=== PATIENT | male | born 1955 | race Caucasian/White ===

== ENCOUNTER 2018-07-23 04:12 | Emergency (ER) | payer SELFPAY ==
[~2018-07-23] VITALS: Ht 170.2 cm; Wt 76.6 kg
[~2018-07-23 04:12] MED LIST: ALLO300T PO; ASPI325T80 PO; BENA20TA4 PO; FLUO40CA2 PO; GLIM4TAB2 PO; HYDR12.517 PO; INSU100C5 SQ-INSULIN; INSU100I28 SQ-INSULIN; INSU100I7 SQ-INSULIN; INSU100V13 SC; INSU100V8 SQ; LOVA40TA2 PO; OMEP20CA9 PO; SITA1TBM7 PO; SUMA25TA3 PO; VERA180C2 PO
--- NOTE | 2018-07-23 04:33 | NUR ---
PT STATES "BRET HAD THE FLUx3 WEEKS." STATES N/V. SUBJECTIVE FEVER. PT STATES DIFFUSE ABD PAIN. DENIES CP/SOB. VSS. CALL LIGHT WTIHIN REACH. AWAITING MD ASSESSMENT.
[2018-07-23] MEDS ORDERED: SODIUM CHLORIDE FLUSH 10ML SYR IVF ONE (05:00)
[2018-07-23] MEDS ORDERED: ONDANSETRON 2MG/ML, 2ML IVPush ONE (05:00)
[2018-07-23] MEDS ORDERED: FAMOTIDINE 20 MG/2 ML IVP ONE (05:00)
[2018-07-23] MEDS ORDERED: FAMOTIDINE 20 MG/2 ML ONE (05:02)
[2018-07-23] MEDS ORDERED: MORPHINE SULFATE 4 MG/ML, 1ML ONE ×2 (05:02→06:00)
[2018-07-23] MEDS ORDERED: ONDANSETRON 2MG/ML, 2ML ONE (05:02)
[2018-07-23] MEDS: MORPHINE SULFATE 4 MG/ML, 1ML IVPush PRN ×2 (05:14→06:09)
[2018-07-23 05:21] LABS: PH, VENOUS 7.494 pH (7.320-7.420)
[2018-07-23 05:33] LABS: BASOPHILS # (AUTO) 0.05 x10^3/uL (0-0.1); BASOPHILS % (AUTO) 0 % (0-1); EOSINOPHILS # (AUTO) 0.03 x10^3/uL (0-0.4); EOSINOPHILS % (AUTO) 0 % (1-7); LYMPHOCYTES # (AUTO) 1.33 x10^3/uL (1-3.4); LYMPHOCYTES % (AUTO) 9 % (22-44); MD NO; MEAN CORPUSCULAR HEMOGLOBIN 31.9 pg (27.5-34.5); MEAN CORPUSCULAR HGB CONC 33.9 g/dL (33.2-36.2); MEAN CORPUSCULAR VOLUME 94.1 fL (81-97); MEAN PLATELET VOLUME 9.7 fL (7.4-10.4); MONOCYTES # (AUTO) 0.83 x10^3/uL (0.2-0.8); MONOCYTES % (AUTO) 5 % (2-9); NEUTROPHILS # (AUTO) 13.03 x10^3/uL (1.8-6.8); NEUTROPHILS % (AUTO) 85 % (42-75); PLATELET COUNT 177 x10^3/uL (130-400); RED BLOOD COUNT 5.07 x10^6/uL (4.38-5.82); RED CELL DISTRIBUTION WIDTH 15.8 % (9.4-14.8)
[2018-07-23 05:44] LABS: ALANINE AMINOTRANSFERASE 53 U/L (12-78); ALBUMIN 3.8 g/dL (3.4-5.0); ANION GAP 13 mmol/L (5-15); CALCIUM 9.9 mg/dL (8.5-10.1); CHLORIDE 102 mmol/L (98-107); CREATININE 1.83 mg/dL (0.7-1.3)
[2018-07-23 05:47] LABS: ALKALINE PHOSPHATASE 128 U/L (45-117); BILIRUBIN,TOTAL 0.5 mg/dL (0.2-1.0); TOTAL PROTEIN 8.2 g/dL (6.4-8.2)
[2018-07-23 05:54] LABS: ACETONE, SERUM Small (20mg/dL) mg/dL (Negative)
[2018-07-23] MEDS ORDERED: METOCLOPRAMIDE 5 MG/ML, 2ML ONE (06:00)
[2018-07-23] MEDS ORDERED: METOCLOPRAMIDE 5 MG/ML, 2ML IVPush ONE (06:00)
--- NOTE | 2018-07-23 06:09 | NUR ---
PT STATES STILL IN PAIN. MD AWARE. SECOND MORHINE GIVEN PER MAR AND REGLAN GIVEN PER MAR.
--- NOTE | 2018-07-23 07:04 | NUR ---
PT REPORT TO CATHLEEN GUARDADO.
[2018-07-23] MEDS ORDERED: SODIUM CHLORIDE 0.9% 1,000ML IVBOLUS ONE (07:30)
[2018-07-23 07:42] VITALS: BP 113/72
--- NOTE | 2018-07-23 08:02 | NUR ---
pt comfortable in bed. urinal provided with instructions to provide ua.
[2018-07-23 08:25] LABS: MICROSCOPIC NOT IND
[2018-07-23 08:35] LABS: CULTURE INDICATED? NO
[2018-07-24] MEDS ORDERED: INSU100V13 SQ (15:48)
== END 2018-07-23 09:04 | disposition home or self-care (01) ==
LOC: ED 06:32
DX: R10.32 Left lower quadrant pain (principal); R10.31 Right lower quadrant pain; R19.7 Diarrhea, unspecified; R11.0 Nausea; K21.9 Gastro-esophageal reflux disease without esophagitis; I10 Essential (primary) hypertension; E78.5 Hyperlipidemia, unspecified; M10.9 Gout, unspecified; E11.9 Type 2 diabetes mellitus without complications
CPT/HCPCS: 36415; 74176; 80053; 81003; 82010; 82803; 82962; 83690; 85025; 96374; 96375; 96376; 99284; J2405; J2765; J3490; J7030

== ENCOUNTER 2018-07-24 13:00 | Inpatient (IN) | payer OTHER ==
[~2018-07-24] VITALS: Ht 170.2 cm; Wt 80.8 kg
[~2018-07-24 13:00] MED LIST changes: -BENA20TA4 PO; +BENA20TA54 PO
[2018-07-24] MEDS ORDERED: ONDANSETRON 2MG/ML, 2ML ONE (13:52)
[2018-07-24] MEDS ORDERED: MORPHINE SULFATE 4 MG/ML, 1ML ONE ×2 (13:52→14:31)
[2018-07-24] MEDS: MORPHINE SULFATE 4 MG/ML, 1ML IVPush PRN ×2 (13:54→14:37)
[2018-07-24] MEDS ORDERED: SODIUM CHLORIDE FLUSH 10ML SYR IVF ONE (14:00)
[2018-07-24] MEDS ORDERED: ONDANSETRON 2MG/ML, 2ML IVPush ONE (14:00)
[2018-07-24] MEDS ORDERED: SODIUM CHLORIDE 0.9% 1,000ML IVBOLUS ONE (14:00)
--- NOTE | 2018-07-24 14:00 | NUR ---
pt presents to ED with c/o small amt rectal bleeding that occured x 1 today. pt also notes abd cramping to all quadrants. piv started, pt medicated, bp and spo2 monitors in place. call light in reach. awaiting labs and dispo .
[2018-07-24 14:06] LABS: INTERNATIONAL NORMALIZED RATIO 1.08 (0.93-1.1); PROTHROMBIN TIME 11.4 Seconds (9.6-11.5)
[2018-07-24 14:09] LABS: ALANINE AMINOTRANSFERASE 49 U/L (12-78); ALBUMIN 3.6 g/dL (3.4-5.0); ANION GAP 13 mmol/L (5-15); CALCIUM 9.5 mg/dL (8.5-10.1); CHLORIDE 104 mmol/L (98-107); CREATININE 1.41 mg/dL (0.7-1.3)
[2018-07-24 14:11] LABS: ALKALINE PHOSPHATASE 119 U/L (45-117); BILIRUBIN,TOTAL 0.7 mg/dL (0.2-1.0); MEAN CORPUSCULAR HEMOGLOBIN 31.8 pg (27.5-34.5); MEAN CORPUSCULAR HGB CONC 33.6 g/dL (33.2-36.2); MEAN CORPUSCULAR VOLUME 94.6 fL (81-97); MEAN PLATELET VOLUME 9.6 fL (7.4-10.4); PLATELET COUNT 168 x10^3/uL (130-400); RED BLOOD COUNT 4.94 x10^6/uL (4.38-5.82); RED CELL DISTRIBUTION WIDTH 15.6 % (9.4-14.8); TOTAL PROTEIN 7.9 g/dL (6.4-8.2)
[2018-07-24 14:40] LABS: ACETONE, SERUM Trace (10mg/dL) mg/dL (Negative)
--- NOTE | 2018-07-24 14:40 | NUR ---
PT STATES PAIN LEVEL 8/10 AT THIS TIME IN ABD, PT A&O, RESPS EVEN AND UNLABORED. VSS. PT MEDICATED PER EMAR WITH SECOND DOSE MORPHINE. PT TO CT AT THIS TIME.
[2018-07-24 14:41] LABS: TROPONIN I < 0.015 ng/mL (0.000-0.045)
[2018-07-24 14:44] LABS: BASOPHILS # (AUTO) 0.05 x10^3/uL (0-0.1); BASOPHILS % (AUTO) 0 % (0-1); EOSINOPHILS # (AUTO) 0.05 x10^3/uL (0-0.4); EOSINOPHILS % (AUTO) 0 % (1-7); LYMPHOCYTES # (AUTO) 1.43 x10^3/uL (1-3.4); LYMPHOCYTES % (AUTO) 12 % (22-44); MD SCAN; MONOCYTES % (AUTO) 7 % (2-9); NEUTROPHILS # (AUTO) 9.28 x10^3/uL (1.8-6.8); NEUTROPHILS % (AUTO) 80 % (42-75)
[2018-07-24] MEDS ORDERED: OMNIPAQUE 350 MG/ML, 100ML BOTTLE ONE (15:17)
--- NOTE | 2018-07-24 15:26 | NUR ---
pt reports abd pain level initially decreased with second dose morphine but now increased again to level 8/10 to all quadrants. pt denies pain in any other location. EDMD Susanna notified pt requesting more pain medication.
[2018-07-24] MEDS ORDERED: HYDROmorphone 2 MG/ML, 1ML IVPush ONE (15:30)
[2018-07-24] MEDS ORDERED: HYDROmorphone 2 MG/ML, 1ML ONE (15:35)
[2018-07-24] MEDS ORDERED: INSU100V13 SQ (15:48)
[2018-07-24] MEDS ORDERED: CEFTRIAXONE PMX 1GM/50ML 50 ML ONE (15:52)
[2018-07-24] MEDS ORDERED: METRONIDAZOLE PMX 500MG/100ML 100 ML IV ONE (16:00)
[2018-07-24] MEDS ORDERED: CEFTRIAXONE PMX 1GM/50ML 50 ML IV ONE (16:00)
--- NOTE | 2018-07-24 16:24 | NUR ---
hospitalist at bedside to admit pt. report called to [facility]one[facility]. pt awaiting transport to room 371.
[2018-07-24] MEDS ORDERED: ONDANSETRON 2MG/ML, 2ML IVPush PRN (16:30)
[2018-07-24] MEDS ORDERED: hydrALAzine 20 MG/ML, 1ML IVPush PRN (16:30)
[2018-07-24] MEDS ORDERED: ONDANSETRON ODT 4 MG PO PRN (16:30)
[2018-07-24] MEDS ORDERED: HEPARIN 5,000 UNITS/ML, 1ML SQ SCH (16:30)
[2018-07-24] MEDS ORDERED: LABETALOL 5MG/ML, 20ML IVPush PRN (16:30)
[2018-07-24 16:58] LABS: CREATINE KINASE, TOTAL 71 U/L (39-308)
[2018-07-24 17:00] LABS: HEMOGLOBIN A1C 10.4 % (4.2-6.3)
[2018-07-24 17:09] VITALS: BP 142/93
[2018-07-24] MEDS: morphine SULFATE 10 MG/ML, 1ML IVPush PRN (17:25)
[2018-07-24] MEDS: SODIUM CHLORIDE 0.9% 1,000 ML IV SCH (17:26)
[2018-07-24] MEDS: OXYcodone/APAP 5/325MG TABLET PO PRN (18:22)
[2018-07-24] MEDS ORDERED: GOLYTELY 4,000ML ORAL.SOL PO ONE (20:00)
[2018-07-24 20:29] VITALS: BP 131/88
[2018-07-24] MEDS: INSULIN LISPRO 100 UNITS/ML, PEN SQ-INSULIN SCH (21:00)
[2018-07-24] MEDS: LOVASTATIN 40 MG TABLET PO SCH (22:14)
[2018-07-24] MEDS: VERAPAMIL ER 180MG TABLET.ER PO SCH (22:15)
[2018-07-25] MEDS: SODIUM CHLORIDE 0.9% 1,000 ML IV SCH ×2 (03:51→16:26)
[2018-07-25 03:53] VITALS: BP 113/69
[2018-07-25 03:55] LABS: CLOSTRIDIUM DIFFICILE ANTIGEN NEGATIVE; CLOSTRIDIUM DIFFICILE TOXIN NEGATIVE (Negative)
[2018-07-25 05:38] LABS: ALBUMIN 2.7 g/dL (3.4-5.0); ANION GAP 8 mmol/L (5-15); CALCIUM 8.5 mg/dL (8.5-10.1); CHLORIDE 109 mmol/L (98-107)
[2018-07-25 05:46] LABS: ALANINE AMINOTRANSFERASE 34 U/L (12-78); ALKALINE PHOSPHATASE 89 U/L (45-117); BILIRUBIN,TOTAL 0.6 mg/dL (0.2-1.0); CHOL/HDL RATIO 3.2; CHOLESTEROL, TOTAL 101 mg/dL (140-239); CREATININE 1.19 mg/dL (0.7-1.3); HDL CHOL % 32 % (26-37); HDL CHOLESTEROL (DIRECT) 32 mg/dL (40-60); LDL CHOLESTEROL,CALCULATED 44 mg/dL (54-169); LDL/HDL RATIO 1.4 (0.5-3.0); TRIGLYCERIDES 127 mg/dL (50-200); VLDL CHOLESTEROL 25 mg/dL (0-25)
[2018-07-25 05:53] LABS: BASOPHILS # (AUTO) 0.02 x10^3/uL (0-0.1); BASOPHILS % (AUTO) 0 % (0-1); EOSINOPHILS # (AUTO) 0.06 x10^3/uL (0-0.4); EOSINOPHILS % (AUTO) 1 % (1-7); LYMPHOCYTES # (AUTO) 1.77 x10^3/uL (1-3.4); LYMPHOCYTES % (AUTO) 19 % (22-44); MD NO; MEAN CORPUSCULAR HEMOGLOBIN 31.3 pg (27.5-34.5); MEAN CORPUSCULAR HGB CONC 32.7 g/dL (33.2-36.2); MEAN CORPUSCULAR VOLUME 95.7 fL (81-97); MEAN PLATELET VOLUME 9.2 fL (7.4-10.4); MONOCYTES % (AUTO) 9 % (2-9); NEUTROPHILS # (AUTO) 6.49 x10^3/uL (1.8-6.8); NEUTROPHILS % (AUTO) 71 % (42-75); PLATELET COUNT 136 x10^3/uL (130-400); RED BLOOD COUNT 4.04 x10^6/uL (4.38-5.82); RED CELL DISTRIBUTION WIDTH 16.3 % (9.4-14.8)
[2018-07-25] MEDS ORDERED: MAGNESIUM SULFATE PMX 2GM/50ML 50 ML IV ONE (07:00)
[2018-07-25 07:05] VITALS: BP 123/66
[2018-07-25] MEDS ORDERED: SUMATRIPTAN 50 MG TABLET ONE (07:46)
[2018-07-25] MEDS: SUMATRIPTAN 25 MG TABLET PO PRN (07:49)
[2018-07-25] MEDS: INSULIN LISPRO 100 UNITS/ML, PEN SQ-INSULIN SCH ×4 (07:57→19:48)
[2018-07-25 08:14] LABS: CRYPTOSPORIDIUM ANTIGEN Negative (Negative)
[2018-07-25] MEDS: morphine SULFATE 10 MG/ML, 1ML IVPush PRN ×3 (09:27→19:48)
[2018-07-25] MEDS ORDERED: MIDAZOLAM 1 MG/ML, 5ML ONE (09:45)
[2018-07-25] MEDS ORDERED: FENTANYL PF 100 MCG/2ML ONE (09:45)
[2018-07-25] MEDS: FLUOXETINE HCL 20 MG CAPSULE PO SCH (12:05)
[2018-07-25] MEDS: OXYcodone/APAP 5/325MG TABLET PO PRN ×3 (12:05→23:15)
[2018-07-25] MEDS: VERAPAMIL ER 180MG TABLET.ER PO SCH ×2 (12:05→19:49)
[2018-07-25] MEDS: OMEPRAZOLE 20 MG CAPSULE.DR PO SCH (12:06)
[2018-07-25 13:00] VITALS: BP 108/70
[2018-07-25 18:59] VITALS: BP 110/65
[2018-07-25] MEDS: LOVASTATIN 40 MG TABLET PO SCH (19:48)
[2018-07-26] MEDS: SODIUM CHLORIDE 0.9% 1,000 ML IV SCH (00:50)
[2018-07-26] MEDS: SUMATRIPTAN 25 MG TABLET PO PRN ×4 (00:56→16:47)
[2018-07-26 01:33] VITALS: BP 117/69
[2018-07-26] MEDS ORDERED: SUMATRIPTAN 50 MG TABLET ONE (03:39)
[2018-07-26 05:56] LABS: BASOPHILS # (AUTO) 0.02 x10^3/uL (0-0.1); BASOPHILS % (AUTO) 0 % (0-1); EOSINOPHILS % (AUTO) 1 % (1-7); LYMPHOCYTES % (AUTO) 26 % (22-44); MD NO; MEAN CORPUSCULAR HEMOGLOBIN 31.1 pg (27.5-34.5); MEAN CORPUSCULAR HGB CONC 32.6 g/dL (33.2-36.2); MEAN CORPUSCULAR VOLUME 95.3 fL (81-97); MEAN PLATELET VOLUME 9.6 fL (7.4-10.4); MONOCYTES # (AUTO) 0.59 x10^3/uL (0.2-0.8); MONOCYTES % (AUTO) 8 % (2-9); NEUTROPHILS # (AUTO) 4.94 x10^3/uL (1.8-6.8); NEUTROPHILS % (AUTO) 65 % (42-75); PLATELET COUNT 133 x10^3/uL (130-400); RED BLOOD COUNT 4.07 x10^6/uL (4.38-5.82); RED CELL DISTRIBUTION WIDTH 15.8 % (9.4-14.8)
[2018-07-26 06:14] LABS: ANION GAP 12 mmol/L (5-15); CALCIUM 7.8 mg/dL (8.5-10.1); CHLORIDE 110 mmol/L (98-107)
[2018-07-26 06:17] LABS: CREATININE 0.94 mg/dL (0.7-1.3)
[2018-07-26 06:52] VITALS: BP 150/84
[2018-07-26] MEDS ORDERED: MAGNESIUM SULFATE PMX 4GM/100M 100 ML IVPB ONE (07:00)
[2018-07-26] MEDS: FLUOXETINE HCL 20 MG CAPSULE PO SCH (07:52)
[2018-07-26] MEDS: OXYcodone/APAP 5/325MG TABLET PO PRN (07:52)
[2018-07-26] MEDS: OMEPRAZOLE 20 MG CAPSULE.DR PO SCH (07:52)
[2018-07-26] MEDS: VERAPAMIL ER 180MG TABLET.ER PO SCH (07:52)
[2018-07-26] MEDS: INSULIN LISPRO 100 UNITS/ML, PEN SQ-INSULIN SCH ×2 (07:58→12:16)
[2018-07-26] MEDS ORDERED: MAALOX/HYOSCYAMINE/LIDOCAINE 45 ML BTL PO ONE (08:30)
[2018-07-26] MEDS ORDERED: ACET-76 PO (12:37)
[2018-07-26 15:33] VITALS: BP 123/73
== END 2018-07-26 16:51 | disposition home or self-care (01) | DRG 393 ==
LOC: ED 14:12 → EDIP 15:38 → 3NE 16:38
PROVIDERS: ADMIT Hospitalist; ATTEND Hospitalist
PROC: 0DBP8ZZ Excision of Rectum, Via Natural or Artificial Opening Endoscopic (ICD-10-PCS; 2018-07-25)
PROC: 0DBK8ZZ Excision of Ascending Colon, Via Natural or Artificial Opening Endoscopic (ICD-10-PCS; principal; 2018-07-25 10:30)
DX: K55.9 Vascular disorder of intestine, unspecified (principal); N17.0 Acute kidney failure with tubular necrosis; E87.2 Acidosis; E11.65 Type 2 diabetes mellitus with hyperglycemia; E78.5 Hyperlipidemia, unspecified; Z66 Do not resuscitate; K21.9 Gastro-esophageal reflux disease without esophagitis; I10 Essential (primary) hypertension; Z80.1 Family history of malignant neoplasm of trachea, bronchus and lung; Z79.4 Long term (current) use of insulin; Z83.3 Family history of diabetes mellitus; Z88.8 Allergy status to other drugs, medicaments and biological substances; Z87.442 Personal history of urinary calculi
CPT/HCPCS: 36415; 71275; 74174; 80048; 80053; 80061; 82010; 82150; 82550; 82962; 83036; 83605; 83615; 83735; 84100; 84484; 85025; 85610; 87046; 87324; 87328; 87329; 87427; 88305; 93005; 96361; 96365; 96375; 99152; 99153; 99285; G0378; J0696; J1170; J2250; J2405; J3010; Q9967; J1815; J2270; J3475; J7030

== ENCOUNTER 2018-07-29 10:07 | Inpatient (IN) | payer OTHER ==
[~2018-07-29] VITALS: Ht 170.2 cm; Wt 72.2 kg
[~2018-07-29 10:07] MED LIST changes: +ACET-76 PO; +INSU100V13 SQ
--- NOTE | 2018-07-29 11:11 | NUR ---
PT C/O CONSTANT DIFFUSE ABD PAIN, +NAUSEA. S/P COLONOSCOPY ON 07/25 D/C FROM [facility] ON 07/26. HAS HAD PERSISTANT ABD PAIN SINCE D/C. CALL LIGHT W/I REACH, WARM BLANKET PROVIDED. AWAITING PROVIDER EVALUATION. VSS
[2018-07-29] MEDS ORDERED: ONDANSETRON 2MG/ML, 2ML IVPush ONE (11:30)
[2018-07-29] MEDS ORDERED: SODIUM CHLORIDE FLUSH 10ML SYR IVF ONE (11:30)
[2018-07-29] MEDS ORDERED: SODIUM CHLORIDE 0.9% 1,000ML IVBOLUS ONE (11:30)
[2018-07-29] MEDS ORDERED: ONDANSETRON 2MG/ML, 2ML ONE (11:51)
[2018-07-29] MEDS ORDERED: HYDROmorphone 1 MG/ML, 1ML ONE ×2 (11:52→12:29)
[2018-07-29] MEDS: HYDROmorphone 2 MG/ML, 1ML IVPush PRN ×2 (11:54→12:30)
[2018-07-29 12:06] LABS: ALBUMIN 3.4 g/dL (3.4-5.0); ANION GAP 11 mmol/L (5-15); CALCIUM 9.7 mg/dL (8.5-10.1); CHLORIDE 103 mmol/L (98-107)
[2018-07-29 12:09] LABS: BASOPHILS # (AUTO) 0.03 x10^3/uL (0-0.1); BASOPHILS % (AUTO) 0 % (0-1); EOSINOPHILS # (AUTO) 0.04 x10^3/uL (0-0.4); EOSINOPHILS % (AUTO) 0 % (1-7); LYMPHOCYTES # (AUTO) 1.38 x10^3/uL (1-3.4); LYMPHOCYTES % (AUTO) 13 % (22-44); MD NO; MEAN CORPUSCULAR HEMOGLOBIN 31.9 pg (27.5-34.5); MEAN CORPUSCULAR HGB CONC 33.6 g/dL (33.2-36.2); MEAN PLATELET VOLUME 9.1 fL (7.4-10.4); MONOCYTES % (AUTO) 7 % (2-9); NEUTROPHILS # (AUTO) 8.25 x10^3/uL (1.8-6.8); NEUTROPHILS % (AUTO) 79 % (42-75); PLATELET COUNT 184 x10^3/uL (130-400); RED BLOOD COUNT 4.87 x10^6/uL (4.38-5.82); RED CELL DISTRIBUTION WIDTH 15.7 % (9.4-14.8)
[2018-07-29 12:10] LABS: ALANINE AMINOTRANSFERASE 34 U/L (12-78); ALKALINE PHOSPHATASE 100 U/L (45-117); BILIRUBIN,TOTAL 0.6 mg/dL (0.2-1.0); CREATININE 1.42 mg/dL (0.7-1.3); TOTAL PROTEIN 7.8 g/dL (6.4-8.2)
--- NOTE | 2018-07-29 12:32 | NUR ---
PT MED NOTED FOR CONTINUED ABD PAIN, 11/07. IVF INFUSING W/O DIFFICULTY. PT OOB AND STOOD AT BEDSIDE TO VOID. RTD TO BED, CALL LIGHT W/I REACH
--- NOTE | 2018-07-29 12:42 | NUR ---
PT TO CT WITH TECH TRANSPORT
[2018-07-29] MEDS ORDERED: OMNIPAQUE 350 MG/ML, 100ML BOTTLE ONE (12:54)
[2018-07-29] MEDS ORDERED: BISACODYL 10 MG SUPP PR PRN (15:00)
[2018-07-29] MEDS ORDERED: ZOLPIDEM 5MG TABLET PO PRN (15:00)
[2018-07-29] MEDS ORDERED: POLYETHYLENE GLYCOL 17 GM PACKET PO PRN (15:00)
[2018-07-29] MEDS ORDERED: POTASSIUM CHLORIDE 20 MEQ TAB.ER.PRT PO ONE (15:00)
[2018-07-29] MEDS ORDERED: hydrALAzine 20 MG/ML, 1ML IVPush PRN (15:00)
[2018-07-29] MEDS ORDERED: ONDANSETRON 2MG/ML, 2ML IVPush PRN (15:00)
[2018-07-29] MEDS ORDERED: ONDANSETRON ODT 4 MG PO PRN (15:00)
[2018-07-29] MEDS ORDERED: LIDODERM 5% PATCH TD PRN (15:00)
[2018-07-29 15:03] VITALS: BP 122/80
[2018-07-29] MEDS: HEPARIN 5,000 UNITS/ML, 1ML SQ SCH ×2 (15:43→23:23)
[2018-07-29] MEDS: SODIUM CHLORIDE 0.9% 1,000 ML IV SCH ×2 (15:43→23:23)
[2018-07-29 15:44] LABS: HEMOGLOBIN A1C 10.1 % (4.2-6.3)
[2018-07-29 15:45] LABS: FREE T4 (FREE THYROXINE) 1.35 ng/dL (0.76-1.46); THYROID STIMULATING HORMONE 1.78 mIU/L (0.358-3.740)
[2018-07-29 16:00] LABS: HCT (SEDRATE) 42.6 % (39.2-51.8)
[2018-07-29] MEDS: INSULIN LISPRO 100 UNITS/ML, PEN SQ-INSULIN SCH ×2 (16:30→20:59)
[2018-07-29] MEDS: ACETAMINOPHEN 325 MG TABLET PO PRN ×2 (16:44→21:05)
[2018-07-29 17:45] LABS: MICROSCOPIC NOT IND
[2018-07-29 17:54] LABS: CULTURE INDICATED? NO
[2018-07-29 19:55] VITALS: BP 110/74
[2018-07-29] MEDS: VERAPAMIL 120MG TABLET PO SCH (20:58)
[2018-07-29] MEDS ORDERED: LOVASTATIN 40 MG TABLET PO SCH (21:00)
[2018-07-29] MEDS: LACTULOSE 10 GM/15 ML UDC PO SCH (21:03)
[2018-07-30 02:38] VITALS: BP 119/71
[2018-07-30 05:39] LABS: MEAN CORPUSCULAR HEMOGLOBIN 31.6 pg (27.5-34.5); MEAN CORPUSCULAR HGB CONC 33.1 g/dL (33.2-36.2); MEAN CORPUSCULAR VOLUME 95.4 fL (81-97); MEAN PLATELET VOLUME 9.4 fL (7.4-10.4); PLATELET COUNT 158 x10^3/uL (130-400); RED BLOOD COUNT 4.21 x10^6/uL (4.38-5.82)
[2018-07-30 05:41] LABS: CHLORIDE 106 mmol/L (98-107)
[2018-07-30 05:48] LABS: ANION GAP 9 mmol/L (5-15); CALCIUM 8.6 mg/dL (8.5-10.1); CHOLESTEROL, TOTAL 112 mg/dL (140-239); CREATININE 1.17 mg/dL (0.7-1.3); HDL CHOLESTEROL (DIRECT) 28 mg/dL (40-60); TRIGLYCERIDES 187 mg/dL (50-200); VLDL CHOLESTEROL 37 mg/dL (0-25)
[2018-07-30 05:49] LABS: HDL CHOL % 25 % (26-37); LDL CHOLESTEROL,CALCULATED 47 mg/dL (54-169); LDL/HDL RATIO 1.7 (0.5-3.0)
[2018-07-30 06:33] LABS: BASOPHILS # (AUTO) 0.03 x10^3/uL (0-0.1); BASOPHILS % (AUTO) 0 % (0-1); EOSINOPHILS # (AUTO) 0.09 x10^3/uL (0-0.4); EOSINOPHILS % (AUTO) 1 % (1-7); LYMPHOCYTES # (AUTO) 2.31 x10^3/uL (1-3.4); LYMPHOCYTES % (AUTO) 30 % (22-44); MD SCAN; MONOCYTES # (AUTO) 0.72 x10^3/uL (0.2-0.8); MONOCYTES % (AUTO) 9 % (2-9); NEUTROPHILS # (AUTO) 4.53 x10^3/uL (1.8-6.8); NEUTROPHILS % (AUTO) 59 % (42-75)
[2018-07-30] MEDS ORDERED: PANTOPRAZOLE 40 MG IV IVPush SCH (07:30)
[2018-07-30 07:41] VITALS: BP 144/84
[2018-07-30] MEDS: SODIUM CHLORIDE 0.9% 1,000 ML IV SCH (07:45)
[2018-07-30] MEDS: HEPARIN 5,000 UNITS/ML, 1ML SQ SCH (07:45)
[2018-07-30] MEDS: INSULIN LISPRO 100 UNITS/ML, PEN SQ-INSULIN SCH ×2 (07:46→11:16)
[2018-07-30] MEDS: LACTULOSE 10 GM/15 ML UDC PO SCH (07:47)
[2018-07-30] MEDS: VERAPAMIL 120MG TABLET PO SCH (07:47)
[2018-07-30] MEDS: ACETAMINOPHEN 325 MG TABLET PO PRN ×2 (08:05→13:15)
[2018-07-30] MEDS ORDERED: SENNA/DOCUSATE TABLET PO SCH (09:00)
[2018-07-30] MEDS ORDERED: FLUOXETINE HCL 20 MG CAPSULE PO SCH (09:00)
[2018-07-30] MEDS ORDERED: HYDROCHLOROTHIAZIDE 25 MG TABLET PO SCH (09:00)
[2018-07-30 13:13] VITALS: BP 108/66
== END 2018-07-30 14:00 | disposition home or self-care (01) | DRG 394 ==
LOC: ED 11:31 → EDIP 13:09 → 4NOR 14:17 → DCLOUNGE 07-30 13:46
PROVIDERS: ADMIT Family Medicine; ATTEND Family Medicine
DX: K55.9 Vascular disorder of intestine, unspecified (principal); N17.9 Acute kidney failure, unspecified; F33.9 Major depressive disorder, recurrent, unspecified; K21.9 Gastro-esophageal reflux disease without esophagitis; I10 Essential (primary) hypertension; G43.909 Migraine, unspecified, not intractable, without status migrainosus; K59.00 Constipation, unspecified; E87.6 Hypokalemia; M10.9 Gout, unspecified; E78.5 Hyperlipidemia, unspecified; E11.65 Type 2 diabetes mellitus with hyperglycemia; Z83.3 Family history of diabetes mellitus; Z80.1 Family history of malignant neoplasm of trachea, bronchus and lung; Z88.6 Allergy status to analgesic agent; Z79.4 Long term (current) use of insulin; Z87.442 Personal history of urinary calculi
CPT/HCPCS: 36415; 74177; 80048; 80053; 80061; 81003; 82962; 83036; 83605; 83690; 84439; 84443; 85025; 85651; 96361; 96374; 96375; 96376; 99285; G0378; J1170; J1644; J2405; Q0162; Q9967; C9113; J1815; J7030

== ENCOUNTER 2019-11-10 16:57 | Emergency (ER) | payer MEDICARE ==
[~2019-11-10] VITALS: Ht 170.2 cm; Wt 81.1 kg
[~2019-11-10 16:57] MED LIST changes: +ESCI5TAB7 PO; +EZET10TA70 PO; +GABA300C10 PO; -GLIM4TAB2 PO; +GLIM4TAB8 PO; +METH500T7 PO
[2019-11-10] MEDS ORDERED: KETOROLAC 30 MG/1 ML ONE (17:47)
[2019-11-10] MEDS ORDERED: ONDANSETRON ODT 4 MG ONE ×3 (17:47→19:56)
[2019-11-10] MEDS ORDERED: OXYcodone/APAP 5/325MG TABLET ONE ×2 (17:47→17:54)
[2019-11-10] MEDS ORDERED: KETOROLAC 30 MG/1 ML IM ONE (18:00)
[2019-11-10] MEDS ORDERED: OXYcodone/APAP 5/325MG TABLET PO ONE (18:00)
[2019-11-10] MEDS ORDERED: ONDANSETRON ODT 4 MG PO ONE ×2 (18:00→20:00)
--- NOTE | 2019-11-10 18:38 | NUR ---
Pt taken to xray. States pain improvement from 9 to a 7 post analgesia.
[2019-11-10] MEDS ORDERED: HYDROmorphone 2 MG/ML, 1ML ONE (19:18)
--- NOTE | 2019-11-10 19:28 | NUR ---
Pt medicated for pain. Bedrails up, call light within reach.
[2019-11-10] MEDS ORDERED: HYDROmorphone 1 MG/ML, 1ML INJ IM ONE (19:30)
--- NOTE | 2019-11-10 19:57 | NUR ---
Pt medicated for nausea per request
[2019-11-10 20:32] VITALS: BP 102/73
--- NOTE | 2019-11-10 20:34 | NUR ---
Pt states some improvement with pain.
--- NOTE | 2019-11-10 21:08 | NUR ---
DC instructions provided, all questions answered. Ride home provided by friend.
== END 2019-11-10 21:17 | disposition home or self-care (01) ==
LOC: ED 19:35
DX: S29.011A Strain of muscle and tendon of front wall of thorax, initial encounter (principal); I10 Essential (primary) hypertension; E11.9 Type 2 diabetes mellitus without complications; K21.9 Gastro-esophageal reflux disease without esophagitis; M10.9 Gout, unspecified; E78.5 Hyperlipidemia, unspecified; N19 Unspecified kidney failure; X58.XXXA Exposure to other specified factors, initial encounter; Y93.89 Activity, other specified; Y92.89 Other specified places as the place of occurrence of the external cause; Y99.8 Other external cause status
CPT/HCPCS: 71250; 96372; 99284; J1170; J1885; Q0162

== ENCOUNTER 2020-09-15 18:11 | Emergency (ER) | payer MEDICARE ==
[~2020-09-15] VITALS: Ht 170.2 cm; Wt 76.9 kg
[~2020-09-15 18:11] MED LIST changes: +METH-639 PO; -METH500T7 PO
[2020-09-15] MEDS ORDERED: HYDROmorphone 2 MG/ML, 1ML ONE (18:57)
[2020-09-15] MEDS ORDERED: ONDANSETRON 2MG/ML, 2ML ONE (18:57)
[2020-09-15] MEDS ORDERED: HYDROmorphone 1 MG/ML, 1ML INJ IV ONE ×2 (19:00→21:30)
[2020-09-15] MEDS ORDERED: SODIUM CHLORIDE FLUSH 10ML SYR IVF ONE (19:00)
[2020-09-15] MEDS ORDERED: ONDANSETRON 2MG/ML, 2ML IVPush ONE (19:00)
--- NOTE | 2020-09-15 19:07 | NUR ---
PT. ARRIVES BY POV WITH C/O LEFT FLANK PAIN WITH HX OF KIDNEY STONES. PT. IS A & O X 4 WITH A GCS OF 15. PT.'S SKIN IS PINK, WARM AND DRY. LUNGS ARE CTA. MM ARE PINK AND MOIST WITH PULSES + 2 THROUGHOUT. PT.'S ABD. IS SOFT AND NON-TENDER WITH BS +X 4 QUADS. PT. IS HAVING INTERMITTENT NAUSEA. IV ACCESS ESTABLISHED. PT. WAS MEDICATED FOR PAIN ORDERED. PULSE OX AND BP CUFF IN PLACE. SIDERAILS REMAIN UP X 2 WITH THE CALL LIGHT IN REACH.
--- NOTE | 2020-09-15 19:37 | NUR ---
PT. REPORTS SOME RELIEF FROM PAIN MEDS. PT. STATES HE REMAINS NAUSEATED.
[2020-09-15] MEDS ORDERED: PROMETHAZINE 25 MG/ML, 1ML ONE (19:40)
--- NOTE | 2020-09-15 19:47 | NUR ---
PT. WAS MEDICATED FOR NAUSEA ORDERED. VSS.
[2020-09-15] MEDS ORDERED: PROMETHAZINE 25 MG/ML, 1ML IM ONE (20:00)
[2020-09-15 21:04] LABS: MICROSCOPIC NOT IND
[2020-09-15] MEDS ORDERED: HYDROmorphone 1 MG/ML, 1ML INJ ONE (21:05)
--- NOTE | 2020-09-15 21:08 | NUR ---
PT. HAD FURTHER C/O PAIN. VSS. PT. WAS MEDICATED PER MD ORDERS.
--- NOTE | 2020-09-15 21:39 | NUR ---
PT. WAS GIVEN DISCHARGE INSTRUCTIONS AND SCRIPTS WITH UNDERSTANDING VERBALIZED ALONG WITH WILLINGNESS TO COMPLY. PT.'S IV WAS DCD', CATH TIP INTACT. PRESSURE HELD WITH HEMOSTASIS ACHIEVED. PT. WAS AMBULATORY WITH A STEADY GAIT TO THE DISCHARGE DESK. VSS.
[2020-09-15 21:40] VITALS: BP 117/63
== END 2020-09-15 21:43 | disposition home or self-care (01) ==
LOC: ED 18:41
DX: N20.0 Calculus of kidney (principal); M54.5 Low back pain; I10 Essential (primary) hypertension; E11.9 Type 2 diabetes mellitus without complications; E78.5 Hyperlipidemia, unspecified; K21.9 Gastro-esophageal reflux disease without esophagitis
CPT/HCPCS: 74176; 81003; 96372; 96374; 96375; 96376; 99285; J1170; J2405; J2550

== ENCOUNTER 2020-12-09 17:53 | Emergency (ER) | payer MEDICARE ==
[~2020-12-09] VITALS: Ht 170.2 cm; Wt 74.3 kg
--- NOTE | 2020-12-09 18:40 | NUR ---
PT TO ROOM 19 FROM XRAY VIA WC.
--- NOTE | 2020-12-09 19:02 | NUR ---
PT STATES PAIN ONSET LAST NIGHT. PAIN STARTED L BUTTOCK WITH RADIATION DOWN L LEG EXTENDING TO CALF. 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 PAIN RATED 9.5/10. CALL LIGHT WITHIN REACH. MED STUDENT IN TO SEE. VS UPDATED IN COMPUTER.
[2020-12-09 19:05] VITALS: BP 108/66
--- NOTE | 2020-12-09 19:06 | NUR ---
PT TOOK METHOCARBAMOL AND NAPROSYN AT 1530, [employer]ING AIDE.
--- NOTE | 2020-12-09 19:28 | NUR ---
MED STUDENT TO BEDSIDE TO EVAL PT. AND PRESENTED CASE TO .
--- NOTE | 2020-12-09 20:15 | NUR ---
PT PULLED A TECH INTO THE ROOM AND TOLD HIM THAT HE IS LEAVING AND GOING HOME BECAUSE HIS PAIN IS TOO MUCH. AND HE CAN'T HANDLE IT. PT HAS BEEN UPDATED MULTIPLE TIMES TO THE DOCTORS HAVING HIS CHART AND EVALUATING THEIR ASSESMENT BEFORE ORDERING ANY MEDICATIONS. PT WAS SEEN RESTING IN THE XRAY ROOM WHILE HE WAS BEING XRAYED AND IN NO PAIN, NOR ANY MOANING OR DISCOMFORT. PT NOW STATES HIS PAIN IS "SUPER HIGH" AND HE CAN'T TAKE IT. MADE AWARE, AWAITING ORDERS.
--- NOTE | 2020-12-09 20:18 | NUR ---
PT DIDN'T WAIT FOR MD TO GO TO ROOM, AND WALKED OUT THE DOOR RATHER QUICKLY. PTS STATEMENT TO THE TECH WAS "THE PAIN IS TOO MUCH, I'M GOING HOME". MD MADE AWARE, AND PT ELOPED WITHOUT NOTIFYING THE RN OR MD
== END 2020-12-09 20:22 | disposition left against medical advice (07) ==
LOC: ED 20:00
DX: S39.012A Strain of muscle, fascia and tendon of lower back, initial encounter (principal); M54.42 Lumbago with sciatica, left side; I10 Essential (primary) hypertension; E11.9 Type 2 diabetes mellitus without complications; E78.5 Hyperlipidemia, unspecified; K21.9 Gastro-esophageal reflux disease without esophagitis; M10.9 Gout, unspecified; X58.XXXA Exposure to other specified factors, initial encounter; Y93.89 Activity, other specified; Y92.89 Other specified places as the place of occurrence of the external cause; Y99.8 Other external cause status
CPT/HCPCS: 72110; 99283